=== PATIENT | male | born 1980 | race Caucasian/White ===

== ENCOUNTER → 2019-07-06 16:09 | Outpatient (BNVA) | payer SELFPAY | PROVIDERS: Visit Provider Nurse Practitioner Family | DX: J02.9 Acute pharyngitis, unspecified (principal); R05 Cough; J40 Bronchitis, not specified as acute or chronic | CPT/HCPCS: 87071; 87400; 87635; 87880 ==

== ENCOUNTER → 2021-04-03 09:03 | Outpatient (BNVA) | payer OTHER, SELFPAY | PROVIDERS: Visit Provider Nurse Practitioner Family | DX: Z20.822 Contact with and (suspected) exposure to COVID-19 (principal) | CPT/HCPCS: 87635 ==

== ENCOUNTER → 2021-05-26 10:11 | Outpatient (BNVA) | payer SELFPAY | PROVIDERS: Visit Provider Family Medicine | DX: J11.1 Influenza due to unidentified influenza virus with other respiratory manifestations (principal) | CPT/HCPCS: 87400 ==

== ENCOUNTER 2022-02-18 19:02 | Emergency (ER) | payer SELFPAY ==
[2022-02-18 19:07] VITALS: BMI 20.7
[2022-02-18 19:11] VITALS: BP 120/76; PULSE 75; PULSE 84; RESP 15; TEMP 36.7; O2SAT 97; O2SAT 99
--- NOTE | 2022-02-18 19:12 | XRR_ITS ---
PROCEDURE INFORMATION: Exam: XR Chest Exam date and time: 02/18/2022 7:30 PM Age: 41 years old Clinical indication: Cough and fever and shortness of breath; Prior surgery; Surgery date: 6+ months; Surgery type: Collar bone TECHNIQUE: Imaging protocol: Radiologic exam of the chest. Views: 1 view. COMPARISON: CT abdomen pelvis w con* [id number] 06/13/2018 12:17 PM FINDINGS: Tubes, catheters and devices: Surgical plate fixation left clavicle. Lungs: Unremarkable. No consolidation. Pleural spaces: Unremarkable. No pleural effusion. No pneumothorax. Heart/Mediastinum: Unremarkable. No cardiomegaly. Bones/joints: Negative for acute thoracic fracture. XR/XR chest 1V portable [id number] IMPRESSION: No acute pulmonary disease.
--- NOTE | 2022-02-18 20:11 | ED_ITS ---
HPI - General Adult General: Chief complaint: General Medical Stated complaint: cough Time Seen by Provider: 02/18/22 20:11 History of Present Illness: Mr. Apple is a 41-year-old gentleman with history of solitary kidney and tobaccoism presenting to the emergency department due to generalized illness. Onset of symptoms was a few days ago. Endorses generalized malaise, headaches, lightheadedness, nausea, vomiting, cough, weakness, fevers. Intensity symptoms moderate to severe. Course is worsened. No other specific changes in health, exacerbating, or alleviating factors identified. Onset (ago): day(s) Severity: moderate Exacerbating factors: other Associated symptoms: Reports cough, decreased appetite, fevers/chills, nausea, vomiting and other Review of Systems General: Reports: 10 or more systems reviewed and unremarkable except in HPI and below GI: Reports: nausea and vomiting PFSH ED PFSH: Medical History (Updated 02/24/22 @ 21:14 by Tomy Riddle MD) No significant past medical history Surgical History (Updated 02/24/22 @ 21:14 by Tomy Riddle MD) History of nephrectomy Social History Smoking and tobacco status: never smoked Alcohol intake: current Physical Exam Const: COMMON NORMALS: alert GENERAL APPEARANCE: cooperative, well developed and ill appearing (Mildly) HENMT: COMMON NORMALS: normocephalic and atraumatic HEAD & SCALP: normocephalic and atraumatic THROAT: posterior oropharynx normal Eye: COMMON NORMALS: conjunctivae normal CONJUNCTIVA: Yes conjunctivae normal SCLERA: sclerae normal Neck/C-Spine: COMMON NORMALS: supple GENERAL: Yes trachea midline Resp: COMMON NORMALS: clear to auscultation bilaterally EFFORT & IN SPECTION: Yes able to speak in complete sentences AUSCULTATION: clear to auscultation bilaterally Cardio: COMMON NORMALS: regular rate and regular rhythm RATE: regular rate RHYTHM: regular rhythm GI: COMMON NORMALS: Soft to palpation PALPATION: Yes Soft to palpation and No Tenderness to palpation present (GI) Extremity: GENERAL: Yes normal exam except as noted and No edema Neuro: COMMON NORMALS: moves all extremities SENSORIUM/ORIENTATION: Yes alert and No Orientation impaired Psych: COMMON NORMALS: mental status grossly normal and Normal thought process present THOUGHT PROCESS: Normal thought process present Course Vital Signs: Vital signs: Vital Signs Temperature 98.0 F 02/18/22 19:11 Pulse Rate 75 02/18/22 19:11 Respiratory Rate 15 02/18/22 19:11 Blood Pressure 120/76 02/18/22 19:11 Pulse Oximetry 99 02/18/22 19:11 Oxygen Delivery Me thod 02/18/22 19:11 MDM - General Adult Medical Decision Making 41-year-old gentleman presenting with generalized illness for a few days. Exam as above. Patient is mildly ill however nontoxic on exam. No evidence of urinary tract infection. Negative rapid viral studies and strep. Chest x-ray with no lobar consolidation or pneumothorax. Patient appears improved after antiemetic, RT treatment, also given steroids and antibiotics and analgesia. The patient does have a history of tobaccoism and does have respiratory symptoms, therefore we will treat for likely underlying lung disease exacerbation. The results of ED evaluation were discussed with the patient including prescriptions and/or symptomatic cares (if applicable) including appropriate and responsible use, followup plan, and return precautions. The patient verbalized understanding and felt safe for discharge. Medical Records I reviewed the patient's medical records. Lab Data I reviewed the patient's lab results. Radiology Impressions Chest X-Ray 02/18/22 19:12 IMPRESSION: No acute pulmonary disease. Laboratory Results Urine Color Yellow (Yellow) 02/18/22 21:00 Urine Appearance Clear (CLEAR) 02/18/22 21:00 Urine pH 5 (5-7) 02/18/22 21:00 Ur Specific [place] 1.025 (1.005-1.030) 02/18/22 21:00 Urine Protein Trace (Negative) 02/18/22 21:00 Urine Glucose (UA) Norm (Normal) 02/18/22 21:00 Urine Ketones 1+ (Negative) H 02/18/22 21:00 Urine Blood Neg (Negative) 02/18/22 21:00 Urine Nitrate Negative (Negative) 02/18/22 21:00 Urine Bilirubin 1+ (Negative) H 02/18/22 21:00 Urine Urobilinogen Norm mg/dL (Negative) 02/18/22 21:00 Ur Leukocyte Esterase Negative (Negative) 02/18/22 21:00 Urine RBC 0-4 /hpf (0-2) H 02/18/22 21:00 Urine WBC None /hpf (0-5) 02/18/22 21:00 Ur Squamous Epith Cells 0-4 /hpf (0-5) H 02/18/22 21:00 Amorphous Sediment 1+ /hpf 02/18/22 21:00 Urine Bacteria None /hpf (NONE) 02/18/22 21:00 Urine Mucus 2+ /hpf 02/18/22 21:00 Influenza Type A Ag negative (Negative) 02/18/22 20:23 Influenza Type B Ag negative (Negative) 02/18/22 20:23 SARS-CoV-2 Ag (Rapid) Negative (Negative) 02/18/22 20:23 Group A Strep Rapid Negative (Negative) 02/18/22 21:00 Discharge Plan Discharge Patient Disposition: Home Clinical Impression: Acute viral syndrome Condition: Stable Prescriptions: New doxycycline hyclate 100 mg capsule 100 mg PO BID 10 Days Qty: 20 0RF ondansetron 4 mg tablet,disintegrating 4 mg PO Q8H PRN (Reason: nausea and vomiting) Qty: 15 0RF albuterol sulfate 90 mcg/actuation HFA aerosol inhaler 2 inh inhalation Q4H PRN (Reason: shortness of breath or wheezing) Qty: 8.5 0RF Discharge Orders: Discharge ED (Routine); Ordered 02/18/22 Ordered By: Tomy Riddle Discharge Diet: Usual diet Discharge Activity: Increase activity as tolerated Patient Instructions: Viral Pneumonia (ED), Viral Syndrome (ED) Activity Restrictions/Additional Instructions: Thank you for visiting the emergency department. You were seen and evaluated for generalized illness including cough. The most likely cause of this is viral in nature. I will prescribe steroids and antibiotics. Please also use your albuterol metered-dose inhaler 2 puffs every 4 hours for 24 hours followed by 2 puffs every 6 hours for 24 hours followed by 2 puffs every 8 hours for 24 hours and then return to the normal schedule. You may use [id number]-[id number] medications such as acetaminophen and ibuprofen for pain however please do not exceed the daily recommended dosage as listed on the packaging and please keep in mind that many namebrand medications contain the same active ingredients. Please avoid these medications if previously instructed to do so by another physician due to other underlying medical condition. Please follow-up with a primary care provider. Return to the emergency department for worsening symptoms or anything else that you are concerned about and feel needs emergency department evaluation. Stand Alone Forms: Work/School Release Coding Level of Care Code ED Underwriting Specialist for Елена Enciso
[2022-02-18 20:47] LABS: Influenza A by IFA negative (Negative); Influenza B by IFA negative (Negative)
[2022-02-18 20:57] LABS: SARS Covid-2 Antigen Negative (Negative)
[2022-02-18] MEDS: acetaminophen 500 mg Tablet 1000 MG PO (21:07)
[2022-02-18] MEDS: ondansetron 4 MG Tablet PO (21:08)
[2022-02-18] MEDS: ipratropium-albuterol 3 mL Neb INHALATION (21:09)
[2022-02-18 21:22] LABS: Rapid Strep A Test Negative (Negative)
[2022-02-18 21:33] LABS: Specific Gravity, Urine 1.025 (1.005-1.030); Urine Appearance Clear (CLEAR); Urine Color Yellow (Yellow); pH Urine 5 (5-7)
[2022-02-18 21:34] LABS: Blood Urine Neg (Negative); Glucose Urine UA Norm (Normal); Ketones Urine 1+ (Negative); Nitrate Urine Negative (Negative); Protein Urine Trace (Negative)
[2022-02-18 21:35] LABS: Add Urine Microscopic? YES; Amorphous Sediment Urine 1+ /hpf; Bilirubin Urine 1+ (Negative); Leukocyte Esterase Urine Negative (Negative); RBC Urine 0-4 /hpf (0-2); Squamous Epithelial Cell Urine 0-4 /hpf (0-5); Urobilinogen Urine Norm (Negative)
[2022-02-18 21:36] LABS: Add Urine Culture? No; Mucus Urine 2+ /hpf
[2022-02-18] MEDS: doxycycline 100 mg Tablet PO (21:44)
[2022-02-18] MEDS: predniSONE 20 mg Tablet 60 MG PO (21:44)
== END 2022-02-18 22:10 | disposition home or self-care (01) ==
PROVIDERS: Emergency Medicine; Emergency Provider Emergency Medicine
DX: B34.9 Viral infection, unspecified (principal); Z20.822 Contact with and (suspected) exposure to COVID-19
CPT/HCPCS: 71045; 81001; 87081; 87426; 87804; 87880; 94640; 99284; J7512; Q0162

== ENCOUNTER 2022-07-30 16:58 | Emergency (ER) | payer SELFPAY ==
[2022-07-30 17:01] VITALS: PULSE 75; RESP 16; TEMP 36.8; O2SAT 98
--- NOTE | 2022-07-30 17:05 | ECG_ITS ---
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 Measurements Intervals [place] Rate: 74 P: 81 [place]: 164 QRS: 89 QRSD: 98 T: 74 QT: 357 QTc: 397 Interpretive Statements SINUS RHYTHM POSSIBLE LEFT VENTRICULAR HYPERTROPHY [VOLTAGE CRITERIA PLUS LAE OR QRS WIDENING] MODERATE ST DEPRESSION [0.05+ mV ST DEPRESSION] Compared to ECG 02/14/2015 13:00:32 ST (T wave) deviation now present Sinus tachycardia no longer present Electronically Signed On 07-30-2022 20:37:33 CDT by Taylor Manning M.D. [id number]
[2022-07-30 17:06] VITALS: BP 126/85
--- NOTE | 2022-07-30 17:25 | XRR_ITS ---
PROCEDURE INFORMATION: Exam: XR Chest Exam date and time: 07/30/2022 5:51 PM Age: 41 years old Clinical indication: Pain; Chest pressure; Prior surgery; Surgery date: 6+ months; Surgery type: Clavicle; Additional info: Cp TECHNIQUE: Imaging protocol: Radiologic exam of the chest. Views: 1 view. COMPARISON: CR XR chest 1V portable [id number] 02/18/2022 7:30 PM FINDINGS: Lungs: Unremarkable. No consolidation. Pleural spaces: Unremarkable. No pleural effusion. No pneumothorax. Heart/Mediastinum: Unremarkable. No cardiomegaly. Bones/joints: Stable plate and screws in the left clavicle. XR/XR chest 1V portable [id number] IMPRESSION: No acute findings.
--- NOTE | 2022-07-30 17:39 | PC.NURSE ---
PT PLACED ON CONTINUOUS SPO2, NIBP, AND CM.
[2022-07-30 17:48] LABS: Basophils # 0.1 10^3/uL (0.0-0.1); Basophils % 0.6 %; Eosinophils # 0.6 10^3/uL (0.0-0.8); Eosinophils % 5.7 %; Hematocrit 42.6 % (42.0-52.0); Hemoglobin 14.2 g/dL (11.7-16.6); Lymphocytes # 3.1 10^3/uL (0.8-4.8); Lymphocytes % 30.2 %; Mean Corpuscular HGB Conc 33.3 g/dL (30.0-36.0); Mean Corpuscular Hemoglobin 29.5 pg (28.0-34.0); Mean Corpuscular Volume 88.6 fl (80-94); Mean Platelet Volume 9.5 fL (7.4-10.4); Monocytes # 0.9 10^3/uL (0.2-0.9); Monocytes % 8.7 %; Neutrophils # 5.67 10^3/uL (1.8-7.7); Neutrophils % 54.6 %; Nucleated Red Blood Cells % 0 %; Platelet Count 289 10^3/cmm (130-400); Red Blood Count 4.81 10^6/uL (4.1-5.3); Red Cell Distribution Width 13.1 % (12.1-15.1); White Blood Count 10.4 10^3/uL (4.0-10.0)
[2022-07-30 18:06] LABS: Troponin(5th) Baseline 6 ng/L (0-15)
[2022-07-30 18:08] LABS: Anion Gap 16.1 (5-19); Blood Urea Nitrogen 19 mg/dL (6-20); Calcium 8.6 mg/dL (8.5-10.5); Carbon Dioxide 25 mmol/L (22-29); Chloride 101 mmol/L (98-107); Glomerular Filtration Rate 74.1 mL/min (90-130); Glucose 79 mg/dL (65-115); Osmolality Calculated 287 mOsm/kg (285-295); Potassium 4.1 mmol/L (3.5-5.1); Sodium 138 mmol/L (136-145)
--- NOTE | 2022-07-30 18:14 | ED_ITS ---
HPI - Chest Pain General: Chief Complaint: Chest Pain Stated Complaint: chest pain Time Seen by Provider: 07/30/22 17:22 Source: patient and family Mode of arrival: ambulatory Limitations: no limitations History of Present Illness: This patient has not made his way to the emergency department today because of concerns about chest pain and left shoulder and neck pain he has been having intermittently over the last 2 months. He states that these pains come on unpredictably and there is no pattern. They may come on at rest or with activity. He states they never awaken him from sleep. He states that sometimes the last for an hour or sometimes longer. He denies any injury. He denies any nausea, shortness of breath. He does feel like he gets some discomfort in the middle of his chest and radiate up into his throat at times. He states the pain sometimes seems to involve his shoulder blade and into his back. He states he does take ibuprofen pretty regularly. He also is a tobacco user. 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 He does not have any history of food intolerance. He has not had any blood in his stools or black tarry stools other than occasionally have some bleeding from a hemorrhoid. He denies any abdominal surgeries other than he was a kidney donor for a family member. He states he has not been recently ill. Associated symptoms: Reports no associated symptoms; Deny abdominal pain, dyspnea, fever(s), nausea, palpitations, syncope or vomiting Risk Factors: Coronary artery disease risk factors: smoking history Review of Systems Const: Denies: fever(s) or chills Eyes: Denies: change in vision or blurry vision ENMT: Denies: throat pain, odynophagia, nasal discharge or nasal congestion Card: Denies: palpitations, irregular heart rhythm, lightheadedness, syncope or pre-syncope Resp: Reports: non-productive cough; Denies: dyspnea, productive cough, wheezing or stridor GI: Denies: abdominal pain, nausea, vomiting, hematemesis or melena : Denies: flank pain, difficulty urinating, dysuria or urinary frequency Musc: Denies: back pain PFS ED PFSH: Medical History No significant past medical history Surgical History (Updated 02/24/22 @ 21:14 by Tomy Riddle MD) History of nephrectomy Social History Smoking and tobacco status: never smoked Alcohol intake: current Substance/Drug Use: never Physical Exam Narrative: EXAM NARRATIVE: Makes good eye contact. Speech is goal-directed. He appears to be alert and in no acute distress. Const: COMMON NORMALS: no acute distress and patient oriented x3 GENERAL APPEARANCE: cooperative and comfortable NUTRITIONAL APPEARANCE: thin HENMT: COMMON NORMALS: normocephalic, atraumatic, Normal nasal mucous membranes and turbinates present, moist oral mucous membranes and oropharynx normal HEAD & SCALP: normocephalic and atraumatic NOSE: Normal nasal mucous membranes and turbinates present Eye: COMMON NORMALS: Equal, round and reactive pupils present, EOMs intact bilaterally and conjunctivae normal CONJUNCTIVA: Yes conjunctivae normal PUPIL: Yes Equal, round and reactive pupils present Neck/C-Spine: COMMON NORMALS: full ROM, no lymphadenopathy and no JVD Chest: COMMONS NORMALS: normal inspection of the chest and normal palpation of entire chest wall Resp: COMMON NORMALS: normal respiratory effort, No retractions, No use of accessory muscles and clear to auscultation bilaterally EFFORT & INSPECTION: Yes able to speak in complete sentences AUSCULTATION: clear to auscultation bilaterally Cardio: COMMON NORMALS: no JVD, regular rate, regular rhythm, No murmurs present (Cardio) and Peripheral pulses 2+ throughout RATE: regular rate RHYTHM: regular rhythm PERIPHERAL PULSES: Peripheral pulses 2+ throughout GI: COMMON NORMALS: Normal to inspection, nondistended, normoactive bowel sounds present, Soft to palpation, non-tender and No hepatosplenomegaly present PALPATION: Yes Soft to palpation and Yes No hepatosplenomegaly present : COMMON NORMALS: Yes no CVA tenderness BLADDER/KIDNEY EXAM: Yes no CVA tenderness Back/Pelvis: COMMON NORMALS: no CVA tenderness, thoracic and lumbar spine normal to inspection, no thoracic nor lumbar tenderness, thoraco-lumbar ROM normal and straight leg raise negative bilaterally Extremity: COMMON NORMALS: normal to inspection, full ROM, capillary refill normal, no calf tenderness and no pedal edema Neuro: COMMON NORMALS: patient oriented x3, moves all extremities, no focal motor deficits and no sensory deficits noted Psych: COMMON NORMALS: mental status grossly normal Skin: COMMON NORMALS: no rashes or lesions noted, no wounds, turgor normal and no jaundice GENERAL SKIN EXAM: no rashes or lesions noted and turgor normal Course Reevaluation(s): Reevaluation #1: Patient remained stable. Initial troponin and EKGs are reassuring. Will await on the second troponin to mitigate against likelihood of ACS. Time: 19:38 Vital Signs: Vital signs: Vital Signs Temperature 98.3 F 07/30/22 17:01 Pulse Rate 80 07/30/22 20:55 Respiratory Rate 18 07/30/22 20:55 Blood Pressure 110/70 07/30/22 20:55 Pulse Oximetry 98 07/30/22 20:55 Oxygen Delivery Me thod Room Air 07/30/22 17:01 MDM - Chest Pain Medical Decision Making This patient made his way to the emergency department because of concerns about episodic chest pains that have been occurring for several months. The patient did not state any specific pattern to his pains other than they seem to be mostly left-sided sometimes substernal and radiating up into his throat. He states sometimes he has pains in his left shoulder and left scapula as well. 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 States occasionally feels like he has heartburn pain as well. He states that these symptoms never awaken him from sleep. They are not associated with e xertion at or other activities and they seem to come on at random as he described. His clinical examination was reassuring and that there was no focal findings to suggest musculoskeletal etiology or other obvious cause of his symptoms. Work- up in ensued to ensure no evidence of ongoing ACS, arrhythmia, pneumonia etc. Resting EKGs were reassuring and that there was no evidence of dynamic changes or other concerning findings. Serial troponins were obtained which were also reassuring in addition to his his other ancillary lab work. Chest x-ray was also reassuring. Based on current clinical findings it certainly does not suggest ACS, pneumonia, thromboembolic issues as he is PERC negative for other worrisome causes of chest pain at this time given his lack of an established pattern typical of angina pains etc. His use of ibuprofen and tobacco's and some of his symptoms suggest possible GI etiology and this was broached with the patient and spouse. We did recommend reduction in tobacco use and ibuprofen use and also using ofak-grc-fmszyyp Pepcid AC 10 mg twice daily for the next 2 to 4 weeks to see if that improves his symptoms. We also reviewed the need to return to the emerge ncy department immediately if for any sustained chest pain, chest pain with exertion or other concerning symptoms we discussed. Acknowledgment and voiced understanding of our discussion from both patient and spouse. Lab Data I reviewed the patient's lab results. 07/30/22 17:40 07/30/22 17:40 Radiology Impressions Chest X-Ray 07/30/22 17:25 IMPRESSION: No acute findings. Laboratory Results WBC 10.4 10^3/uL (4.0-10.0) H 07/30/22 17:40 RBC 4.81 10^6/uL (4.1-5.3) 07/30/22 17:40 Hgb 14.2 g/dL (11.7-16.6) 07/30/22 17:40 Hct 42.6 % (42.0-52.0) 07/30/22 17:40 MCV 88.6 fl (80-94) 07/30/22 17:40 MCH 29.5 pg (28.0-34.0) 07/30/22 17:40 MCHC 33.3 g/dL (30.0-36.0) 07/30/22 17:40 RDW 13.1 % (12.1-15.1) 07/30/22 17:40 Plt Count 289 10^3/cmm (130-400) 07/30/22 17:40 MPV 9.5 fL (7.4-10.4) 07/30/22 17:40 Neut % (Auto) 54.6 % 07/30/22 17:40 Lymph % (Auto) 30.2 % 07/30/22 17:40 [place] % (Auto) 8.7 % 07/30/22 17:40 Eos % (Auto) 5.7 % 07/30/22 17:40 Baso % (Auto) 0.6 % 07/30/22 17:40 Neut # (Auto) 5.67 10^3/uL (1.8-7.7) 07/30/22 17:40 Lymph # (Auto) 3.1 10^3/uL (0.8-4.8) 07/30/22 17:40 [place] # (Auto) 0.9 10^3/uL (0.2-0.9) 07/30/22 17:40 Eos # (Auto) 0.6 10^3/uL (0.0-0.8) 07/30/22 17:40 Baso # (Auto) 0.1 10^3/uL (0.0-0.1) 07/30/22 17:40 Nucleated RBC % (auto) 0 % 07/30/22 17:40 Nucleated RBCs # 0.0 /100WBC 07/30/22 17:40 Sodium 138 mmol/L (136-145) 07/30/22 17:40 Potassium 4.1 mmol/L (3.5-5.1) 07/30/22 17:40 Chloride 101 mmol/L (98-107) 07/30/22 17:40 Carbon Dioxide 25 mmol/L (22-29) 07/30/22 17:40 Anion Gap 16.1 (5-19) 07/30/22 17:40 BUN 19 mg/dL (6-20) 07/30/22 17:40 Creatinine 1.1 mg/dL (0.7-1.2) 07/30/22 17:40 GFR Calculation 74.1 mL/min (90-130) L 07/30/22 17:40 Glucose 79 mg/dL (65-115) 07/30/22 17:40 Calculated Osmolality 287 mOsm/kg (285-295) 07/30/22 17:40 Calcium 8.6 mg/dL (8.5-10.5) 07/30/22 17:40 Troponin T Baseline 6 ng/L (0-15) 07/30/22 17:40 Troponin T 120 Minute 6.00 ng/L (0-15) 07/30/22 19:31 Delta Troponin T 0 ABS# (0-10) 07/30/22 19:31 EKG Data EKG 1: I personally reviewed and interpreted this EKG as follows: Interpretation: Contemporaneous review of EKG reveals ventricular rate of 74 bpm with normal [place] interval, QRS duration, corrected QT interval. Normal axis. Possible voltage criteria for LVH. No acute ST-T wave changes noted at this time. EKG 2: I personally reviewed and interpreted this EKG as follows: Interpretation: Contemporaneous review of second EKG this visit reveals a ventricular rate of 73 bpm. Normal [place] interval, QRS duration, corrected QT interval, normal axis. Essentially unchanged from prior tracing this visit. No acute changes. Discharge Plan Discharge Patient Disposition: Home Clinical Impression: Chest pain Condition: Stable Prescriptions: No Action ondansetron 4 mg tablet,disintegrating 4 mg PO Q8H PRN (Reason: nausea and vomiting) Qty: 15 0RF albuterol sulfate 90 mcg/actuation HFA aerosol inhaler 2 inh inhalation Q4H PRN (Reason: shortness of breath or wheezing) Qty: 8.5 0RF Discharge Orders: Discharge ED (Routine); Ordered 07/30/22 Ordered By: Luan Jaramillo Discharge Diet: Usual diet and Low Salt Discharge Activity: Increase activity as tolerated Patient Instructions: Opioid Safety, Pain Management Activity Restrictions/Additional Instructions: As we discussed while you are in the emergency department did not find any evidence that this was likely to be heart related pain. Your tests were very reassuring while you were here. Some of your symptoms suggest this may be related to your esophagus which can be irritated by tobacco as well as ibuprofen. We recommend reducing your use of both of those items to reduce the inflammation in your stomach and esophagus. We also recommend taking drdy-gaa-hbswebt Pepcid 10 mg twice daily for the next 2 to 4 weeks to see if that helps control your symptoms. If your symptoms do not reduce with that approach then further evaluation is likely warranted. If you develop sustained chest pain, shortness of breath, other concerning symptoms return to this or the nearest emergency department immediately. Coding Level of Care Code ED Field Artillery Operations Man for Елена Enciso
--- NOTE | 2022-07-30 18:57 | PC.NURSE ---
REPORT GIVEN TO CIELO DIAZ ASSUMED CARE.
--- NOTE | 2022-07-30 19:25 | ECG_ITS ---
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 Measurements Intervals [place] Rate: 73 P: 74 [place]: 168 QRS: 87 QRSD: 101 T: 76 QT: 375 QTc: 413 Interpretive Statements SINUS RHYTHM POSSIBLE LEFT VENTRICULAR HYPERTROPHY [VOLTAGE CRITERIA PLUS LAE OR QRS WIDENING] Compared to ECG 07/30/2022 17:05:20 ST (T wave) deviation no longer present Electronically Signed On 07-30-2022 20:45:34 CDT by Taylor Manning M.D. [id number]
[2022-07-30 20:26] LABS: Troponin 5 2HR Delta 0 ABS# (0-10)
[2022-07-30 20:55] VITALS: BP 110/70; PULSE 80; RESP 18; O2SAT 98
--- NOTE | 2022-08-06 15:31 | DCPLANNER ---
TCM called patient due to no primary care physician - no answer at this time.
== END 2022-07-30 20:55 | disposition home or self-care (01) ==
PROVIDERS: Emergency Provider Emergency Medicine
DX: R07.9 Chest pain, unspecified (principal)
CPT/HCPCS: 71045; 80048; 84484; 85025; 93005; 99285

== ENCOUNTER 2023-01-21 13:12 | Emergency (ER) | payer SELFPAY ==
[2023-01-21 13:23] VITALS: BP 102/71; PULSE 84; RESP 16; TEMP 36.8; BMI 19.1
--- NOTE | 2023-01-21 13:44 | XR_ITS ---
WS: [id number] Exam: XR knee LT 3V* [id number] Date/Time of Exam: 01/21/2023 1:44 PM Reason For Exam: knee pain and swelling Comparison 01/17/2018. No fracture or dislocation. The joint compartments are well-maintained. Probable effusion in the supr apatellar bursa. IMPRESSION: 1. Probable joint effusion. 2. No fracture or other significant finding.
--- NOTE | 2023-01-21 13:45 | W.ED.EXTPRO ---
HPI - Extremity Problem General: Chief complaint: Extremity Injury, Lower Stated complaint: lt knee inj Time Seen by Provider: 01/21/23 13:29 History of Present Illness: Patient reports he is here for left knee pain. He states that approximately 2 weeks ago he was going up and down a ladder repeatedly at work and started having pain in his left knee and some swelling. He reports that it just keeps getting worse. He reports that yesterday he was working and he felt a huge pop and then he could not bend his knee. He reports that a little bit later on he felt another huge pop that took him to the ground. He states that the swelling is a little bit less right now because he has been off of the leg all day. He is able to bend and extend the leg but has pain in the anterior medial aspect of the knee. He has taken a couple doses of ibuprofen, but he states that he uses this sparingly as he only has 1 kidney. Associated symptoms: Deny fever(s) Review of Systems Const: Denies: fever(s) or chills Musc: Reports: joint pain and joint swelling [facility] ED PFSH: Medical History No significant past medical history Surgical History History of nephrectomy Social History Smoking and tobacco/nicotine status: never used tobacco/nicotine Alcohol intake: current Substance/Drug Use: never Physical Exam Const: COMMON NORMALS: no acute distress, patient oriented x3, alert and well nourished Resp: COMMON NORMALS: normal respiratory effort and No use of accessory muscles Extremity: NARRATIVE EXTREMITY EXAM: Tenderness to palpation left anterior medial aspect of the knee. There is some swelling and joint effusion appreciated. No obvious bony deformity appreciated. No erythema or warmth. Patient has full range of motion of the knee. Tenderness mainly along the medial collateral ligament Neuro: COMMON NORMALS: patient oriented x3 SENSORIUM/ORIENTATION: Yes alert Course Vital Signs: Vital signs: Vital Signs Temperature 98.2 F 01/21/23 13:23 Pulse Rate 84 01/21/23 13:23 Respiratory Rate 16 01/21/23 13:23 Blood Pressure 102/71 01/21/23 13:23 MDM - Extremity (Nontraumatic) Medical Decision Making Consider knee strain, joint effusion, arthritis X-ray 3 view left knee wet read: Swelling with no acute osseous deformity Radiologist read: Probable joint effusion with no acute fracture We will encourage conservative treatment at home for knee strain. Ice, rest, elevate the extremity. Brock wrap and crutches provided to limit weightbearing for the next 3 to 4 days to allow the need to rest. Referral for orthopedics for continued evaluation. Return to the ER as needed for any new or worsening symptoms. All radiology interpretation(s) finalized by discharge Discharge Plan Discharge Patient Disposition: Home Clinical Impression: Knee MCL sprain Qualifiers: Encounter type: initial encounter Laterality: left Qualified Code(s): S83.412A - Sprain of medial collateral ligament of left knee, initial encounter Joint effusion of knee Qualifiers: Laterality: left Qualified Code(s): M25.462 - Effusion, left knee Condition: Stable Prescriptions: No Action ondansetron 4 mg tablet,disintegrating 4 mg PO Q8H PRN (Reason: nausea and vomiting) Qty: 15 0RF albuterol sulfate 90 mcg/actuation HFA aerosol inhaler 2 inh inhalation Q4H PRN (Reason: shortness of breath or wheezing) Qty: 8.5 0RF Discharge Orders: Discharge ED (Routine); Ordered 01/21/23 Ordered By: Vickie Ovalle Discharge Diet: Usual diet Discharge Activity: Limit activity as instructed Patient Instructions: Knee Sprain (ED) Activity Restrictions/Additional Instructions: Use crutches to limit weightbearing on left leg for the next 3 to 4 days then slowly advance weightbearing as tolerated. Brock wrap for compression and support of the knee. Ice, rest, elevate the extremity. Follow-up with orthopedics. Return to the ER as needed for new or worsening symptoms Stand Alone Forms: Work/School Release Coding Level of Care Code ED Director Of Instruction for Елена Enciso
--- NOTE | 2023-01-22 15:41 | DCPLANNER ---
sent message to ortho for follow up on LT knee pain and joint effusion.
== END 2023-01-21 15:16 | disposition home or self-care (01) ==
PROVIDERS: Emergency Provider Nurse Practitioner Family
DX: M25.462 Effusion, left knee (principal); S83.412A Sprain of medial collateral ligament of left knee, initial encounter; X50.9XXA Other and unspecified overexertion or strenuous movements or postures, initial encounter
CPT/HCPCS: 73562; 99283

== ENCOUNTER 2023-05-28 19:14 | Emergency (ER) | payer SELFPAY ==
[2023-05-28 19:28] VITALS: BP 120/75; PULSE 87; RESP 18; TEMP 36.7; O2SAT 97; BMI 19.3
[2023-05-28 21:38] LABS: Basophils # 0.1 10^3/uL (0.0-0.1); Basophils % 0.5 %; Eosinophils # 0.6 10^3/uL (0.0-0.8); Eosinophils % 5.9 %; Hematocrit 41.7 % (37-53); Mean Corpuscular HGB Conc 32.6 g/dL (30-55); Mean Corpuscular Hemoglobin 29.9 pg (27-33); Mean Corpuscular Volume 91.6 fl (82-101); Mean Platelet Volume 9.4 fL (7.4-10.4); Monocytes % 10.1 %; Neutrophils # 5.58 10^3/uL (1.8-7.7); Neutrophils % 54.2 %; Nucleated Red Blood Cells % 0 %; Platelet Count 319 10^3/cmm (157-399); Red Blood Count 4.55 10^6/uL (3.85-5.65); Red Cell Distribution Width 13.1 % (12.1-15.1); White Blood Count 10.29 10^3/uL (3.29-11.43)
[2023-05-28 21:56] LABS: Blood Urea Nitrogen 18 mg/dL (6-20); Calcium 8.6 mg/dL (8.5-10.5); Carbon Dioxide 29 mmol/L (22-29); Chloride 101 mmol/L (98-107); Creatinine Clr Calc Pharmacy 93.9043; Glomerular Filtration Rate 82.3 mL/min (90-130); Glucose 118 mg/dL (65-115); Osmolality Calculated 291 mOsm/kg (285-295); Sodium 139 mmol/L (136-145)
[2023-05-28 22:10] LABS: Add Urine Microscopic? YES; Bacteria Urine TRACE /hpf; Bilirubin Urine 1+ (Negative); Blood Urine Neg (Negative); Glucose Urine UA Norm (Normal); Ketones Urine 1+ (Negative); Leukocyte Esterase Urine Trace (Negative); Mucus Urine TRACE /hpf; Nitrate Urine Negative (Negative); Protein Urine Neg (Negative); RBC Urine 0-4 /hpf (0-2); Squamous Epithelial Cell Urine 0-4 /hpf (0-5); Urine Appearance Clear (CLEAR); Urine Color Light yellow (Yellow); Urobilinogen Urine 1 mg/dL (Negative); WBC Urine 0-4 /hpf (0-5); pH Urine 6.5 (5-7)
--- NOTE | 2023-05-28 23:25 | W.ED.GENADLT ---
Documented by User: MICAH Love 05/28/23 23:31 HPI - General Adult General: Chief complaint: General Medical Stated complaint: rectal bleed Time Seen by Provider: 05/28/23 22:11 Source: patient Mode of arrival: ambulatory Limitations: no limitations History of Present Illness: Patient is a 42-year-old male who presents to the emergency department complaining of rectal bleeding onset today. 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 He notes today he was talking to his outside, when he got the feeling of something running down his leg, and upon inspection noticed it was blood. He states his hemorrhoids usually bleed on him while he is defecating, but has never bled spontaneously like this. He does note that earlier in the day he could feel a flare coming up. He has never made any changes to his diet or tried any conservative therapies such as sitz bath or hydrocortisone cream. He denies any rectal pain, abdominal pain, syncope, palpitations, or any other symptoms. He states he had a normal colonoscopy in 2018. Associated symptoms: Deny chest pain, diaphoresis, dyspnea, headache(s), nausea, rash, palpitations or vomiting Review of Systems General: Reports: 10 or more systems reviewed and unremarkable except in HPI and below Const: Denies: fever(s), chills, change in appetite, change in weight or diaphoresis ENMT: Denies: throat pain or hoarseness Card: Denies: chest pain, palpitations or lightheadedness Resp: Denies: dyspnea, productive cough or wheezing GI: Reports: other (Rectal bleeding); Denies: abdominal pain, nausea, vomiting, diarrhea, constipation, bloating or change in stool character : Denies: flank pain, difficulty urinating, dysuria, urinary frequency or urinary urgency Musc: Denies: neck pain or back pain Skin/Breast: Denies: rash or new lesions Neuro: Denies: headache(s) or dizziness PFSH ED PFSH: Medical History No significant past medical history Surgical History History of nephrectomy Social History Smoking and tobacco/nicotine status: never used tobacco/nicotine Alcohol intake: current Substance/Drug Use: never Physical Exam Const: COMMON NORMALS: no acute distress, average body habitus, patient oriented x3, no limitations, healthy appearing, alert and well nourished GENERAL APPEARANCE: cooperative and comfortable ORIENTATION/CONSCIOUSNESS: Yes awake HENMT: COMMON NORMALS: normocephalic, atraumatic, hearing grossly normal bilaterally, external ears normal, Normal external nose present, Normal nasal mucous membranes and turbinates present and moist oral mucous membranes HEAD & SCALP: normocephalic and atraumatic NOSE: Normal external nose present and Normal nasal mucous membranes and turbinates present EXTERNAL EAR: Yes external ears normal Eye: COMMON NORMALS: Equal, round and reactive pupils present, EOMs intact bilaterally, conjunctivae normal and normal visual tellez by confrontation CONJUNCTIVA: Yes conjunctivae normal PUPIL: Yes Equal, round and reactive pupils present Neck/C-Spine: COMMON NORMALS: full ROM, supple, no meningeal signs and no JVD Resp: COMMON NORMALS: normal respiratory effort, No retractions, No use of accessory muscles and clear to auscultation bilaterally AUSCULTATION: clear to auscultation bilaterally, no crackles, no rales, no rhonchi and no wheezes Cardio: COMMON NORMALS: no JVD, regular rate, regular rhythm, S1 normal heart sound present, S2 normal heart sound present, No gallops present (Cardio), No clicks present (Cardio), No murmurs present (Cardio), No rub (Cardio) and Peripheral pulses 2+ throughout RATE: regular rate RHYTHM: regular rhythm HEART SOUNDS: S1 normal heart sound present and S2 normal heart sound present PERIPHERAL PULSES: Peripheral pulses 2+ throughout GI: COMMON NORMALS: Normal to inspection, nondistended, normoactive bowel sounds present, Soft to palpation, non-tender, No hepatosplenomegaly present and no masses AUSCULTATION: Yes normoactive bowel sounds PALPATION: Yes Soft to palpation, No Guarding due to palpation present (GI), No Rigid due to palpation and Yes No hepatosplenomegaly present RECTAL EXAM: Yes normal sphincter tone, Yes hemorrhoids (Multiple internal and external, no active bleeding), No Rectal prolapse, No Anal fissure(s) present and No tenderness Extremity: COMMON NORMALS: normal to inspection and full ROM Neuro: COMMON NORMALS: patient oriented x3, moves all extremities, no focal motor deficits and no sensory deficits noted SENSORIUM/ORIENTATION: Yes alert MENINGEAL SIGNS: Yes no meningeal signs Psych: COMMON NORMALS: mental status grossly normal, cooperative and speech normal SPEECH: Yes normal speech Skin: COMMON NORMALS: no rashes or lesions noted GENERAL SKIN EXAM: no rashes or lesions noted Course Vital Signs: Vital signs: Vital Signs Temperature 98.0 F 05/28/23 19:28 Pulse Rate 80 05/28/23 23:38 Respiratory Rate 18 05/28/23 23:38 Blood Pressure 120/75 05/28/23 19:28 Pulse Oximetry 96 05/28/23 23:38 Oxygen Delivery Me thod Room Air 05/28/23 19:28 [facility] - General Adult Medical Decision Making Patient seen and evaluated for rectal bleeding. He notes chronic history of hemorrhoids that cause similar bleeding, however today's was different because it was unprovoked. He has never seen a primary doctor or GI specialist for it. He is not currently bleeding. Rectal examination positive for multiple, nonstrangulated internal/external hemorrhoids with no active bleeding. He currently is not exhibiting any symptoms. Basic laboratory workup essentially unremarkable. Due to patient's chronic history and lack of attempts at conservative therapy, I will refer the patient to GI and instruct him to engage in conservative treatment such as sitz bath's, high-fiber diet, and hydrocortisone creams. He agrees with this plan and will follow-up with GI as instructed. I have no reason at this time to do any sort of imaging or further workup, as I believe his bleeding was a result of an aggravated hemorrhoid. Return precautions are given. Lab Data I reviewed the patient's lab results. 05/28/23 21:16 05/28/23 21:16 Laboratory Results WBC 10.29 10^3/uL (3.29-11.43) 05/28/23 21:16 RBC 4.55 10^6/uL (3.85-5.65) 05/28/23 21:16 Hgb 13.60 g/dL (11.27-16.99) 05/28/23 21:16 Hct 41.7 % (37-53) 05/28/23 21:16 MCV 91.6 fl (82-101) 05/28/23 21:16 MCH 29.9 pg (27-33) 05/28/23 21:16 MCHC 32.6 g/dL (30-55) 05/28/23 21:16 RDW 13.1 % (12.1-15.1) 05/28/23 21:16 Plt Count 319 10^3/cmm (157-399) 05/28/23 21:16 MPV 9.4 fL (7.4-10.4) 05/28/23 21:16 Neut % (Auto) 54.2 % 05/28/23 21:16 Lymph % (Auto) 29.0 % 05/28/23 21:16 Powell % (Auto) 10.1 % 05/28/23 21:16 Eos % (Auto) 5.9 % 05/28/23 21:16 Baso % (Auto) 0.5 % 05/28/23 21:16 Neut # (Auto) 5.58 10^3/uL (1.8-7.7) 05/28/23 21:16 Lymph # (Auto) 3.0 10^3/uL (0.8-4.8) 05/28/23 21:16 Powell # (Auto) 1.0 10^3/uL (0.2-0.9) H 05/28/23 21:16 Eos # (Auto) 0.6 10^3/uL (0.0-0.8) 05/28/23 21:16 Baso # (Auto) 0.1 10^3/uL (0.0-0.1) 05/28/23 21:16 Nucleated RBC % (auto) 0 % 05/28/23 21:16 Nucleated RBCs # 0.0 /100WBC 05/28/23 21:16 Sodium 139 mmol/L (136-145) 05/28/23 21:16 Potassium 4.0 mmol/L (3.5-5.1) 05/28/23 21:16 Chloride 101 mmol/L (98-107) 05/28/23 21:16 Carbon Dioxide 29 mmol/L (22-29) 05/28/23 21:16 Anion Gap 13.0 (5-19) 05/28/23 21:16 BUN 18 mg/dL (6-20) 05/28/23 21:16 Creatinine 1.0 mg/dL (0.7-1.2) 05/28/23 21:16 GFR Calculation 82.3 mL/min (90-130) L 05/28/23 21:16 Glucose 118 mg/dL (65-115) H 05/28/23 21:16 Calculated Osmolality 291 mOsm/kg (285-295) 05/28/23 21:16 Calcium 8.6 mg/dL (8.5-10.5) 05/28/23 21:16 Urine Color Light yellow (Yellow) 05/28/23 21:54 Urine Appearance Clear (CLEAR) 05/28/23 21:54 Urine pH 6.5 (5-7) 05/28/23 21:54 Ur Specific [place] 1.010 (1.005-1.030) 05/28/23 21:54 Urine Protein Neg (Negative) 05/28/23 21:54 Urine Glucose (UA) Norm (Normal) 05/28/23 21:54 Urine Ketones 1+ (Negative) H 05/28/23 21:54 Urine Blood Neg (Negative) 05/28/23 21:54 Urine Nitrate Negative (Negative) 05/28/23 21:54 Urine Bilirubin 1+ (Negative) H 05/28/23 21:54 Urine Urobilinogen 1 mg/dL (Negative) H 05/28/23 21:54 Ur Leukocyte Esterase Trace (Negative) H 05/28/23 21:54 Urine RBC 0-4 /hpf (0-2) H 05/28/23 21:54 Urine WBC 0-4 /hpf (0-5) H 05/28/23 21:54 Ur Squamous Epith Cells 0-4 /hpf (0-5) H 05/28/23 21:54 Amorphous Sediment Not Reportable 05/28/23 21:54 Urine Bacteria Trace /hpf (NONE) 05/28/23 21:54 Urine Mucus Trace /hpf 05/28/23 21:54 No radiology studies performed this visit Discharge Plan Discharge Patient Disposition: Home Clinical Impression: Hemorrhoids, internal, with bleeding Condition: Stable Prescriptions: No Action ondansetron 4 mg tablet,disintegrating 4 mg PO Q8H PRN (Reason: nausea and vomiting) Qty: 15 0RF albuterol sulfate 90 mcg/actuation HFA aerosol inhaler 2 inh inhalation Q4H PRN (Reason: shortness of breath or wheezing) Qty: 8.5 0RF Discharge Orders: Discharge ED (Routine); Ordered 05/28/23 Ordered By: Sunil Serrano Patient Instructions: Hemorrhoids (ED), Sitz Bath Activity Restrictions/Additional Instructions: Increase dietary fiber intake. Follow-up with GI as discussed. Sitz bath's as needed. Return with any new or concerning symptoms. Coding Level of Care Code ED Die Maker Apprentice for Chg Fwd Documented by User: Khari Gautam DO 05/29/23 06:29 HPI - General Adult General: Chief complaint: General Medical Stated complaint: rectal bleed Time Seen by Provider: 05/28/23 22:11 [facility] ED PFSH: Medical History No significant past medical history Surgical History History of nephrectomy Social History Smoking and tobacco/nicotine status: never used tobacco/nicotine Alcohol intake: current Substance/Drug Use: never Course Vital Signs: Vital signs: Vital Signs Temperature 98.0 F 05/28/23 19:28 Pulse Rate 80 05/28/23 23:38 Respiratory Rate 18 05/28/23 23:38 Blood Pressure 120/75 05/28/23 19:28 Pulse Oximetry 96 05/28/23 23:38 Oxygen Delivery Me thod Room Air 05/28/23 19:28 MDM - General Adult Medical Decision Making Patient seen and evaluated for rectal bleeding. He notes chronic history of hemorrhoids that cause similar bleeding, however today's was different because it was unprovoked. He has never seen a primary doctor or GI specialist for it. He is not currently bleeding. Rectal examination positive for multiple, nonstrangulated internal/external hemorrhoids with no active bleeding. He currently is not exhibiting any symptoms. Basic laboratory workup essentially unremarkable. Due to patient's chronic history and lack of attempts at conservative therapy, I will refer the patient to GI and instruct him to engage in conservative treatment such as sitz bath's, high-fiber diet, and hydrocortisone creams. He agrees with this plan and will follow-up with GI as instructed. I have no reason at this time to do any sort of imaging or further workup, as I believe his bleeding was a result of an aggravated hemorrhoid. Return precautions are given. Chart reviewed Lab Data 05/28/23 21:16 05/28/23 21:16 Laboratory Results WBC 10.29 10^3/uL (3.29-11.43) 05/28/23 21:16 RBC 4.55 10^6/uL (3.85-5.65) 05/28/23 21:16 Hgb 13.60 g/dL (11.27-16.99) 05/28/23 21:16 Hct 41.7 % (37-53) 05/28/23 21:16 MCV 91.6 fl (82-101) 05/28/23 21:16 MCH 29.9 pg (27-33) 05/28/23 21:16 MCHC 32.6 g/dL (30-55) 05/28/23 21:16 RDW 13.1 % (12.1-15.1) 05/28/23 21:16 Plt Count 319 10^3/cmm (157-399) 05/28/23 21:16 MPV 9.4 fL (7.4-10.4) 05/28/23 21:16 Neut % (Auto) 54.2 % 05/28/23 21:16 Lymph % (Auto) 29.0 % 05/28/23 21:16 Powell % (Auto) 10.1 % 05/28/23 21:16 Eos % (Auto) 5.9 % 05/28/23 21:16 Baso % (Auto) 0.5 % 05/28/23 21:16 Neut # (Auto) 5.58 10^3/uL (1.8-7.7) 05/28/23 21:16 Lymph # (Auto) 3.0 10^3/uL (0.8-4.8) 05/28/23 21:16 Powell # (Auto) 1.0 10^3/uL (0.2-0.9) H 05/28/23 21:16 Eos # (Auto) 0.6 10^3/uL (0.0-0.8) 05/28/23 21:16 Baso # (Auto) 0.1 10^3/uL (0.0-0.1) 05/28/23 21:16 Nucleated RBC % (auto) 0 % 05/28/23 21:16 Nucleated RBCs # 0.0 /100WBC 05/28/23 21:16 Sodium 139 mmol/L (136-145) 05/28/23 21:16 Potassium 4.0 mmol/L (3.5-5.1) 05/28/23 21:16 Chloride 101 mmol/L (98-107) 05/28/23 21:16 Carbon Dioxide 29 mmol/L (22-29) 05/28/23 21:16 Anion Gap 13.0 (5-19) 05/28/23 21:16 BUN 18 mg/dL (6-20) 05/28/23 21:16 Creatinine 1.0 mg/dL (0.7-1.2) 05/28/23 21:16 GFR Calculation 82.3 mL/min (90-130) L 05/28/23 21:16 Glucose 118 mg/dL (65-115) H 05/28/23 21:16 Calculated Osmolality 291 mOsm/kg (285-295) 05/28/23 21:16 Calcium 8.6 mg/dL (8.5-10.5) 05/28/23 21:16 Urine Color Light yellow (Yellow) 05/28/23 21:54 Urine Appearance Clear (CLEAR) 05/28/23 21:54 Urine pH 6.5 (5-7) 05/28/23 21:54 Ur Specific [place] 1.010 (1.005-1.030) 05/28/23 21:54 Urine Protein Neg (Negative) 05/28/23 21:54 Urine Glucose (UA) Norm (Normal) 05/28/23 21:54 Urine Ketones 1+ (Negative) H 05/28/23 21:54 Urine Blood Neg (Negative) 05/28/23 21:54 Urine Nitrate Negative (Negative) 05/28/23 21:54 Urine Bilirubin 1+ (Negative) H 05/28/23 21:54 Urine Urobilinogen 1 mg/dL (Negative) H 05/28/23 21:54 Ur Leukocyte Esterase Trace (Negative) H 05/28/23 21:54 Urine RBC 0-4 /hpf (0-2) H 05/28/23 21:54 Urine WBC 0-4 /hpf (0-5) H 05/28/23 21:54 Ur Squamous Epith Cells 0-4 /hpf (0-5) H 05/28/23 21:54 Amorphous Sediment Not Reportable 05/28/23 21:54 Urine Bacteria Trace /hpf (NONE) 05/28/23 21:54 Urine Mucus Trace /hpf 05/28/23 21:54 Discharge Plan Discharge Patient Disposition: Home Clinical Impression: Hemorrhoids, internal, with bleeding Condition: Stable Prescriptions: No Action ondansetron 4 mg tablet,disintegrating 4 mg PO Q8H PRN (Reason: nausea and vomiting) Qty: 15 0RF albuterol sulfate 90 mcg/actuation HFA aerosol inhaler 2 inh inhalation Q4H PRN (Reason: shortness of breath or wheezing) Qty: 8.5 0RF Discharge Orders: Discharge ED (Routine); Ordered 05/28/23 Ordered By: Sunil Serrano Patient Instructions: Hemorrhoids (ED), Sitz Bath Activity Restrictions/Additional Instructions: Increase dietary fiber intake. Follow-up with GI as discussed. Sitz bath's as needed. Return with any new or concerning symptoms. Coding Level of Care Code ED Die Maker Apprentice for Елена Enciso
[2023-05-28 23:38] VITALS: PULSE 80; RESP 18; O2SAT 96
--- NOTE | 2023-05-31 15:10 | DCPLANNER ---
Referral for GI sent to [facility] - [phone]
== END 2023-05-28 23:40 | disposition home or self-care (01) ==
PROVIDERS: Internal Medicine; Emergency Provider Physician Assistant
DX: K64.8 Other hemorrhoids (principal)
CPT/HCPCS: 36415; 80048; 81001; 85025; 99283

== ENCOUNTER 2023-06-07 20:40 | Emergency (ER) | payer SELFPAY ==
[2023-06-07 20:44] VITALS: BP 110/76; PULSE 103; RESP 18; TEMP 38.6; O2SAT 94
--- NOTE | 2023-06-07 20:45 | XRR_ITS ---
PROCEDURE INFORMATION: Exam: XR Chest Exam date and time: 06/07/2023 9:04 PM Age: 42 years old Clinical indication: Shortness of breath; Additional info: SOB TECHNIQUE: Imaging protocol: Radiologic exam of the chest. Views: 1 view. COMPARISON: CR XR chest 1V portable [id number] 07/30/2022 5:51 PM FINDINGS: Lungs: Subtle right basal opacities. Pleural spaces: No pleural effusion. No pneumothorax. Heart/Mediastinum: Normal cardiomediastinal silhouette. Bones/joints: No acute osseous abnormality. Left clavicle fixation. XR/XR chest 1V portable [id number] IMPRESSION: Subtle right basilar opacity which may represent atelectasis decreased lung expansion compared to prior, pneumonia not excluded in the appropriate clinical setting.
[2023-06-07 21:29] LABS: Influenza A by IFA Negative (Negative); Influenza B by IFA Negative (Negative); SARS Covid-2 Antigen Negative (Negative)
--- NOTE | 2023-06-07 21:30 | W.ED.URI ---
HPI - URI/Sore Throat General: Chief Complaint: Upper Respiratory Infection Stated Complaint: SOB,Sinus,Headace Time Seen by Provider: 06/07/23 20:49 History of Present Illness: Patient presents to the ER with complaints of cough shortness of breath headache generalized bodyaches for the last several days. Patient says this been going on for about oh 5 days of or so. He started up in his sinuses and his sinus infection and then he thinks went down to his lungs. Patient is complaining of fever and chills, his temperature was 101.4 and pulse 103 when he arrived. Patient denies any nausea vomiting diarrhea. Review of Systems General: Reports: 10 or more systems reviewed and unremarkable except in HPI and below PFSH ED PFSH: Medical History No significant past medical history Surgical History History of nephrectomy Social History Smoking and tobacco/nicotine status: never used tobacco/nicotine Alcohol intake: current Substance/Drug Use: never Physical Exam Const: COMMON NORMALS: no acute distress, average body habitus, patient oriented x3, no limitations, healthy appearing, alert and well nourished HENMT: COMMON NORMALS: normocephalic, atraumatic, hearing grossly normal bilaterally, external ears normal, EAC's normal, moist oral mucous membranes and oropharynx normal HEAD & SCALP: normocephalic and atraumatic EXTERNAL EAR: Yes external ears normal EXTERNAL AUDITORY CANAL: EAC's normal Neck/C-Spine: COMMON NORMALS: no JVD Chest: COMMONS NORMALS: normal inspection of the chest and normal palpation of entire chest wall Resp: COMMON NORMALS: normal respiratory effort, No retractions, No use of accessory muscles and clear to auscultation bilaterally AUSCULTATION: clear to auscultation bilaterally Cardio: COMMON NORMALS: no JVD, regular rate, regular rhythm, S1 normal heart sound present, S2 normal heart sound present, No gallops present (Cardio), No clicks present (Cardio), No murmurs present (Cardio) and No rub (Cardio) RATE: regular rate RHYTHM: regular rhythm HEART SOUNDS: S1 normal heart sound present and S2 normal heart sound present GI: COMMON NORMALS: Normal to inspection, nondistended, normoactive bowel sounds present, Soft to palpation, non-tender, No hepatosplenomegaly present and no masses PALPATION: Yes Soft to palpation and Yes No hepatosplenomegaly present Neuro: COMMON NORMALS: patient oriented x3 SENSORIUM/ORIENTATION: Yes alert Course Vital Signs: Vital signs: Vital Signs Temperature 101.4 F H 06/07/23 22:00 Pulse Rate 103 H 06/07/23 22:00 Respiratory Rate 18 06/07/23 22:00 Blood Pressure 110/76 06/07/23 22:00 Pulse Oximetry 94 06/07/23 22:00 Oxygen Delivery Me thod Room Air 06/07/23 20:44 MDM - URI/Sore Throat Medical Decision Making Patient had chest x-ray which is presumptively read by myself is negative and also a influenza and COVID swab which were negative. Patient will be treated for sinusitis bacterial in nature, patient will be given Omnicef 300 mg here and a prescription to go home with for the next 10 days. Differential Diagnosis Likely upper respiratory infection; Unlikely croup, otitis media, sinusitis, viral infection, bronchitis, influenza or pharyngitis Medical Records I reviewed the patient's medical records. Lab Data I reviewed the patient's lab results. Radiology Impressions Chest X-Ray 06/07/23 20:45 IMPRESSION: Subtle right basilar opacity which may represent atelectasis decreased lung expansion compared to prior, pneumonia not excluded in the appropriate clinical setting. Laboratory Results Influenza Type A Ag Negative (Negative) 06/07/23 21:03 Influenza Type B Ag Negative (Negative) 06/07/23 21:03 SARS-CoV-2 Ag (Rapid) Negative (Negative) 06/07/23 21:03 All radiology interpretation(s) finalized by discharge Discharge Plan Discharge Patient Disposition: Home Clinical Impression: Acute bacterial sinusitis Upper respiratory infection Qualifiers: URI type: unspecified URI Qualified Code(s): J06.9 - Acute upper respiratory infection, unspecified Condition: Stable Prescriptions: New cefdinir 300 mg capsule 300 mg PO BID 10 Days Qty: 20 0RF No Action ondansetron 4 mg tablet,disintegrating 4 mg PO Q8H PRN (Reason: nausea and vomiting) Qty: 15 0RF albuterol sulfate 90 mcg/actuation HFA aerosol inhaler 2 inh inhalation Q4H PRN (Reason: shortness of breath or wheezing) Qty: 8.5 0RF Discharge Orders: Discharge ED (Routine); Ordered 06/07/23 Ordered By: Kwaku Cano Patient Instructions: Sinusitis - Acute, Upper Respiratory Infection - Adult Activity Restrictions/Additional Instructions: Your chest x-ray was negative for pneumonia and your influenza and COVID swabs were negative. It is thought you have an upper respiratory infection along with bacterial sinusitis. You will be placed on an antibiotic that is sent to your pharmacy. Please take all medicine as directed. Please follow-up with your family practice physician. Coding Level of Care Code ED Director Of Retention for Елена Enciso
[2023-06-07] MEDS: cefdinir 300 MG CAPSULE PO (21:40)
[2023-06-07 22:00] VITALS: BP 110/76; PULSE 103; RESP 18; TEMP 38.6; O2SAT 94
== END 2023-06-07 22:01 | disposition home or self-care (01) ==
PROVIDERS: Emergency Provider Emergency Medicine
DX: J06.9 Acute upper respiratory infection, unspecified (principal); J01.90 Acute sinusitis, unspecified; B96.89 Other specified bacterial agents as the cause of diseases classified elsewhere; Z11.52 Encounter for screening for COVID-19
CPT/HCPCS: 71045; 87426; 87804; 99284

== ENCOUNTER 2023-07-17 09:18 | Emergency (ER) | payer SELFPAY ==
[2023-07-17] VITALS (27 sets, daily range): BP systolic 123; BP diastolic 91; PULSE 70–89; RESP 16–17; TEMP 38.2; O2SAT 90–100
--- NOTE | 2023-07-17 09:49 | XRR_ITS ---
PROCEDURE INFORMATION: Exam: XR Abdomen Exam date and time: 07/17/2023 10:04 AM Age: 42 years old Clinical indication: Abdominal pain; Generalized; Prior surgery; Surgery date: 6+ months; Surgery type: Hemorrhoidectomy; Additional info: Severe abdominal pain TECHNIQUE: Imaging protocol: Radiologic exam of the abdomen. Views: Frontal supine view of the abdomen. 1 View. COMPARISON: CT abdomen pelvis w con* [id number] 06/13/2018 12:17 PM FINDINGS: Gastrointestinal tract: There is no obvious bowel obstruction or free air on this plain radiographic examination with the patient in the supine position except for possible fecal impaction. Large amount of stool throughout the colon suggests constipation. Bones/joints: Mild-moderate scoliosis with minimal spondylosis. XR/XR KUB portable [id number] IMPRESSION: Probable constipation. Possible fecal impaction.
[2023-07-17 10:32] LABS: Basophils % 0.2 %; Eosinophils # 0.1 10^3/uL (0.0-0.8); Eosinophils % 0.7 %; Lymphocytes # 0.9 10^3/uL (0.8-4.8); Lymphocytes % 7.1 %; Mean Corpuscular Hemoglobin 29.1 pg (27-33); Mean Corpuscular Volume 88.3 fl (82-101); Mean Platelet Volume 9.1 fL (7.4-10.4); Monocytes # 0.8 10^3/uL (0.2-0.9); Monocytes % 6.2 %; Neutrophils # 11.27 10^3/uL (1.8-7.7); Neutrophils % 85.6 %; Nucleated Red Blood Cells % 0 %; Platelet Count 319 10^3/cmm (157-399); Red Blood Count 4.53 10^6/uL (3.85-5.65); Red Cell Distribution Width 13.3 % (12.1-15.1); White Blood Count 13.18 10^3/uL (3.29-11.43)
[2023-07-17 10:49] LABS: Anion Gap 13.9 (5-19); Blood Urea Nitrogen 17 mg/dL (6-20); Calcium 8.8 mg/dL (8.5-10.5); Carbon Dioxide 23 mmol/L (22-29); Chloride 102 mmol/L (98-107); Creatinine Clr Calc Pharmacy 99.7906; Glomerular Filtration Rate 106.5 mL/min (90-130); Glucose 103 mg/dL (65-115); Osmolality Calculated 282 mOsm/kg (285-295); Potassium 3.9 mmol/L (3.5-5.1); Sodium 135 mmol/L (136-145)
--- NOTE | 2023-07-17 10:49 | ED_ITS ---
HPI - General Adult 2 General: Chief complaint: General Medical Stated complaint: constapation Time Seen by Provider: 07/17/23 09:46 Source: patient and family Mode of arrival: ambulatory Limitations: no limitations History of Present Illness: Patient was in complaint of rectal pain. Had hemorrhoidectomy Wednesday has been on Percocet 5 6 times a day since then. Has been taking some stool softener [id number] equally ran. Likely Colace. Tried taking some MiraLAX, milk of mag and mag citrate over the past 24 hours but with no relief. Has not had a bowel movement. Tried to possibly manually disimpact himself at home prior to coming up here but was unable to as the stool was hard in his rectum. Having severe pain and discomfort from this rectally and rating up his lower back low bit. No known fever per patient however temp was 100.8 on arrival. Review of Systems 2 General: Reports: 10 or more systems reviewed and unremarkable except in HPI and below PFSH ED 2 PFSH: Medical History No significant past medical history Surgical History History of nephrectomy Social History Smoking and tobacco/nicotine status: never used tobacco/nicotine Alcohol intake: current Substance/Drug Use: never Physical Exam 2 Const: COMMON NORMALS: no acute distress, average body habitus, patient oriented x3, healthy appearing, alert and well nourished GENERAL APPEARANCE: well kempt and well developed HENMT: COMMON NORMALS: normocephalic, atraumatic, external ears normal and moist oral mucous membranes HEAD & SCALP: normocephalic and atraumatic E XTERNAL EAR: Yes external ears normal Eye: COMMON NORMALS: Equal, round and reactive pupils present, EOMs intact bilaterally and conjunctivae normal CONJUNCTIVA: Yes conjunctivae normal P UPIL: Yes Equal, round and reactive pupils present Neck/C-Spine: COMMON NORMALS: full ROM, no lymphadenopathy and supple Chest: CHEST: Yes Symmetrical chest wall rise and No Surgical scars present (Chest) Resp: COMMON NORMALS: normal respiratory effort, No retractions, No use of accessory muscles and clear to auscultation bilaterally AUSCULTATION: clear to auscultation bilaterally Cardio: COMMON NORMALS: regular rate, regular rhythm, S1 normal heart sound present, S2 normal heart sound present, No gallops present (Cardio), No clicks present (Cardio), No murmurs present (Cardio) and No rub (Cardio) RATE: r egular rate RHYTHM: regular rhythm HEART SOUNDS: S1 normal heart sound present, S2 normal heart sound present and no murmurs PERIPHERAL PULSES: o ther (Radial pulses 2+ and symmetric) GI: COMMON NORMALS: Soft to palpation and no masses INSPECTION: No abdominal distension PALPATION: Yes Soft to palpation, Yes Tenderness to palpation present (GI) Details: LLQ and other (Suprapubic), No Guarding due to palpation present (GI) and No Rebound tenderness present : COMMON NORMALS: Yes no CVA tenderness BLADDER/KIDNEY EXAM: Yes no CVA tenderness Back/Pelvis: COMMON NORMALS: no CVA tenderness Extremity: COMMON NORMALS: normal to inspection, full ROM, capillary refill normal and no clubbing, cyanosis or edema Neuro: COMMON NORMALS: patient oriented x3 SENSORIUM/ORIENTATION: Yes alert Psych: APPEARANCE: Yes well kempt Skin: COMMON NORMALS: no rashes or lesions noted, no wounds, turgor normal and no jaundice GENERAL SKIN EXAM: no rashes or lesions noted and turgor normal Course 2 Reevaluation(s): Reevaluation #1: Patient finally was able to have a bowel movement. Large amount evacuated. Patient will be discharged with specific instructions. Time: 15:40 Vital Signs: Vital signs: Vital Signs Temperature 100.8 F H 07/17/23 09:44 Pulse Rate 89 07/17/23 13:10 Respiratory Rate 17 07/17/23 14:28 Blood Pressure 123/91 07/17/23 14:00 Pulse Oximetry 99 07/17/23 14:28 Oxygen Delivery Me thod Room Air 07/17/23 09:40 MDM - General Adult Medical Decision Making Patient is constipation and impaction secondary to opioid pain medication along with recent rectal surgery. Patient was given 2 substance enemas held 1 for the first hour and then had another for 30 minutes and was finally able to produce a bowel movement. On discharge patient with patient on a bowel regimen of 4 capfuls of MiraLAX per day with plenty of water intake along with senna 2 tablets twice daily. Patient instructed to titrate the MiraLAX down once stools are starting to soften. 24 hours after finishing opiates patient can decrease the senna and will discuss titrating that down once he is off opiates as well. Medical Records I reviewed the patient's medical records. Lab Data I reviewed the patient's lab results. 07/17/23 10:27 07/17/23 10:27 Radiology Impressions KUB X-Ray 07/17/23 09:49 IMPRESSION: Probable constipation. Possible fecal impaction. Laboratory Results WBC 13.18 10^3/uL (3.29-11.43) H 07/17/23 10:27 RBC 4.53 10^6/uL (3.85-5.65) 07/17/23 10:27 Hgb 13.20 g/dL (11.27-16.99) 07/17/23 10:27 Hct 40.0 % (37-53) 07/17/23 10:27 MCV 88.3 fl (82-101) 07/17/23 10:27 MCH 29.1 pg (27-33) 07/17/23 10:27 MCHC 33.0 g/dL (30-55) 07/17/23 10:27 RDW 13.3 % (12.1-15.1) 07/17/23 10:27 Plt Count 319 10^3/cmm (157-399) 07/17/23 10:27 MPV 9.1 fL (7.4-10.4) 07/17/23 10:27 Neut % (Auto) 85.6 % 07/17/23 10:27 Lymph % (Auto) 7.1 % 07/17/23 10:27 [place] % (Auto) 6.2 % 07/17/23 10:27 Eos % (Auto) 0.7 % 07/17/23 10:27 Baso % (Auto) 0.2 % 07/17/23 10:27 Neut # (Auto) 11.27 10^3/uL (1.8-7.7) H 07/17/23 10:27 Lymph # (Auto) 0.9 10^3/uL (0.8-4.8) 07/17/23 10:27 [place] # (Auto) 0.8 10^3/uL (0.2-0.9) 07/17/23 10:27 Eos # (Auto) 0.1 10^3/uL (0.0-0.8) 07/17/23 10:27 Baso # (Auto) 0.0 10^3/uL (0.0-0.1) 07/17/23 10:27 Nucleated RBC % (auto) 0 % 07/17/23 10:27 Nucleated RBCs # 0.0 /100WBC 07/17/23 10:27 Sodium 135 mmol/L (136-145) L 07/17/23 10:27 Potassium 3.9 mmol/L (3.5-5.1) 07/17/23 10:27 Chloride 102 mmol/L (98-107) 07/17/23 10:27 Carbon Dioxide 23 mmol/L (22-29) 07/17/23 10:27 Anion Gap 13.9 (5-19) 07/17/23 10:27 BUN 17 mg/dL (6-20) 07/17/23 10:27 Creatinine 0.8 mg/dL (0.7-1.2) 07/17/23 10:27 GFR Calculation 106.5 mL/min (90-130) 07/17/23 10:27 Glucose 103 mg/dL (65-115) 07/17/23 10:27 Calculated Osmolality 282 mOsm/kg (285-295) L 07/17/23 10:27 Calcium 8.8 mg/dL (8.5-10.5) 07/17/23 10:27 All radiology interpretation(s) finalized by discharge ED provider radiology interpretation(s): KUB shows extensive constipation with impaction. Discharge Plan Discharge Patient Disposition: Home Condition: Stable Prescriptions: New Laxative PEG 3350 17 gram/dose powder 34 g PO BID Qty: 510 0RF Rx Instructions: After 2 days, 3 capfuls per day,then 2 capfuls/day, then 1 keeping stool about the texture of soft serve ice cream. sennosides 8.6 mg tablet 17.2 mg PO BID PRN (Reason: while taking pain medication) Qty: 90 0RF No Action [place] 5-325 mg Tablet 1 tab PO Q4H PRN (Reason: Pain) Discharge Orders: Discharge ED (Routine); Ordered 07/17/23 Ordered By: Gregorio Robison Patient Instructions: Pain Management, Opioid Safety, Constipation (ED) Activity Restrictions/Additional Instructions: Would advise picking up some fleets or mineral oil enemas in the pharmacy as well. Coding Level of Care Code ED Body Shop Floorperson for Елена Enciso
[2023-07-17] MEDS: morphine 4 mg/mL SDV 1 mL 6 MG IVP ×2 (11:01→14:28)
[2023-07-17] MEDS: ondansetron 2 mg/ML SDV 2 mL 4 MG IVP (11:02)
[2023-07-17] MEDS: sodium chloride 0.9% 1,000 ML 999 ML IV (11:02)
--- NOTE | 2023-07-17 11:46 | ECG_ITS ---
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 Measurements Intervals [place] Rate: 77 P: 65 IN: 182 QRS: 77 QRSD: 95 T: 69 QT: 379 QTc: 430 Interpretive Statements SINUS RHYTHM Compared to ECG 07/30/2022 19:19:07 No significant changes Electronically Signed On 07-17-2023 19:53:44 CDT by Sraanya Lopez M.D. [email or web address]
--- NOTE | 2023-07-17 13:32 | PC.NURSE ---
Patient held the soap suds enema for 1 hour and is now sittin on the bedside commode to see if he can attempt to have a bowel movement.
[2023-07-17] MEDS: lidocaine 4% cream 5 gm 1 APPLIC TOPICAL (15:58)
[2023-07-17] MEDS: oxyCODONE-APAP 5-325 mg Tablet 1 TAB PO (16:50)
== END 2023-07-17 16:52 | disposition home or self-care (01) ==
PROVIDERS: Emergency Provider Emergency Medicine
DX: K62.89 Other specified diseases of anus and rectum (principal)
CPT/HCPCS: 36415; 74018; 80048; 85025; 93005; 96361; 96374; 96375; 99285; J2270; J2405; J7030

== ENCOUNTER 2023-07-19 12:50 | Emergency (ER) | payer SELFPAY ==
[2023-07-19 13:27] VITALS: BP 116/75; PULSE 73; RESP 15; TEMP 36.8; O2SAT 98
--- NOTE | 2023-07-19 14:02 | ED_ITS ---
HPI - Male Genitourinary General: Chief complaint: Urogenital-Male Stated complaint: wants cath removed Time Seen by Provider: 07/19/23 13:54 Source: patient Mode of arrival: ambulatory Limitations: no limitations History of Present Illness: Patient is a 42-year-old male presents to ED today requesting his Decker catheter be removed. Patient states he underwent a hemorrhoidectomy by Dr. Pritchett in [facility] 1 week ago. He reportedly had acute urinary retention following the surgery and could not urinate during his postop recovery therefore a Decker catheter was placed. He was told he needs to be replaced in a week. He states he had an appointment to see Dr. Pritchett to have the catheter removed but does want to make the necessary trip all the way to [place] for this thus prompting his emergency department evaluation/request for us to remove it. He has not had any issues with the catheter thus far. MD Complaint: other (Wants Decker catheter removed) Relieving factors: none Exacerbating factors: none Associated symptoms: Reports no associated symptoms Review of Systems GI: Denies: abdominal pain : Reports: other (wants decker catheter removed); Denies: flank pain Musc: Denies: back pain PFSH ED PFSH: Medical History No significant past medical history Surgical History History of nephrectomy Social History Smoking and tobacco/nicotine status: never used tobacco/nicotine Alcohol intake: current Substance/Drug Use: never Physical Exam Const: COMMON NORMALS: no acute distress, average body habitus, no limitations, healthy appearing, alert and well nourished GI: COMMON NORMALS: Normal to inspection, nondistended, normoactive bowel sounds present and non-tender : COMMON NORMALS: Yes no CVA tenderness BLADDER/KIDNEY EXAM: Yes no CVA tenderness OTHER: decker catheter present Back/Pelvis: COMMON NORMALS: no CVA tenderness Neuro: SENSORIUM/ORIENTATION: Yes alert Course Vital Signs: Vital signs: Vital Signs Temperature 98.2 F 07/19/23 13:27 Pulse Rate 73 07/19/23 13:27 Respiratory Rate 15 07/19/23 13:27 Blood Pressure 116/75 07/19/23 13:27 Pulse Oximetry 98 07/19/23 13:27 Oxygen Delivery Me thod Room Air 07/19/23 13:27 MDM - Male Medical Decision Making Decker catheter was removed at patient request. He will be allowed discharge. Return to ED precautions given. Medical Records I reviewed the patient's medical records. No radiology studies performed this visit Discharge Plan Discharge Patient Disposition: Home Clinical Impression: Encounter for Decker catheter removal Condition: Stable Prescriptions: No Action [place] 5-325 mg Tablet 1 tab PO Q4H PRN (Reason: Pain) Laxative PEG 3350 17 gram/dose powder 34 g PO BID Qty: 510 0RF Rx Instructions: After 2 days, 3 capfuls per day,then 2 capfuls/day, then 1 keeping stool about the texture of soft serve ice cream. sennosides 8.6 mg tablet 17.2 mg PO BID PRN (Reason: while taking pain medication) Qty: 90 0RF Discharge Orders: Discharge ED (Routine); Ordered 07/19/23 Ordered By: Chely Staton Activity Restrictions/Additional Instructions: Your Decker catheter was removed at your request. You need to return to the emergency department if you are unable to urinate, start having severe abdominal or back pain, flank pain, fevers, repetitive episodes of vomiting, or any other concerns you may have. Coding Level of Care Code ED Yield Analyst for Елена Enciso
== END 2023-07-19 14:55 | disposition home or self-care (01) ==
PROVIDERS: Emergency Provider Physician Assistant
DX: Z46.6 Encounter for fitting and adjustment of urinary device (principal)
CPT/HCPCS: 99282